=== PATIENT | male | born 1990 | race Caucasian/White ===

== ENCOUNTER 2016-12-27 16:49 | Emergency (ER) | payer MEDICAID ==
[~2016-12-27] VITALS: Ht 182.9 cm; Wt 102.1 kg
--- NOTE | 2016-12-27 17:40 | NUR ---
[employer] AT BEDSIDE FOR EVAL.
[2016-12-27] MEDS ORDERED: diphenhydrAMINE HCL 50 MG/ML VIAL ONE (17:52)
[2016-12-27] MEDS ORDERED: ACETAMINOPHEN ES 500 MG TABLET ONE (17:52)
[2016-12-27] MEDS ORDERED: METOCLOPRAMIDE HCL 10 MG/2 ML VIAL ONE (17:52)
[2016-12-27] MEDS ORDERED: IV NS 0.9% 250 ML IV ONE (17:54)
[2016-12-27] MEDS ORDERED: IV SET PRIMARY 1 EA INFUS.SET MC ONE (17:54)
[2016-12-27] MEDS: ACETAMINOPHEN 325 MG TABLET PO ONE (18:00)
[2016-12-27] MEDS: METOCLOPRAMIDE HCL 10 MG/2 ML VIAL IV ONE (18:05)
[2016-12-27] MEDS: diphenhydrAMINE HCL 50 MG/ML VIAL IV ONE (18:07)
[2016-12-27 19:03] VITALS: BP 129/75
--- NOTE | 2016-12-27 19:03 | NUR ---
PT. VERBALIZED UNDERSTANDING OF AFTERCARE INSTRUCTIONS.Patient discharged to home in stable condition. Written and verbal after care instructions given. Patient verbalizes understanding of instruction.IV removed. Catheter intact and site benign. Pressure and 4x4 applied to site. No bleeding noted.
== END 2016-12-27 19:03 | disposition home or self-care (01) ==
LOC: ER 16:54
DX: H92.02 Otalgia, left ear (principal); B34.9 Viral infection, unspecified; H66.92 Otitis media, unspecified, left ear; J45.909 Unspecified asthma, uncomplicated; Z91.030 Bee allergy status
CPT/HCPCS: 96374; 96375; 99284; A4606; J1200; J2765; J7050; Z7610